=== PATIENT | male | born 1960 | race Hispanic/Latino ===

== ENCOUNTER 2023-01-31 09:45 | Day surgery (SDC) | payer OTHER ==
[2023-01-31 10:22] LABS: Potassium 4.7 mEq/L (3.5-5.1)
[2023-01-31] MEDS ORDERED: NA CHLORIDE 0.9% 1,000 ML ONE (10:35)
[2023-01-31] MEDS ORDERED: LIDOCAINE 1% MPF 5 ML VIAL ONE (12:55)
[2023-01-31] MEDS ORDERED: propofoL 200 MG/20 ML VIAL IV ONE (12:55)
[2023-01-31 13:37] VITALS: TEMP 97.8
[2023-01-31 13:52] VITALS: BP 116/67; O2SAT 100
--- NOTE | 2023-01-31 19:29 | EKG ---
Test Date: 2023-01-31 Test Time: 09:36:25 Lead Web Developer: SILVERIO MEASUREMENT RESULTS: Intervals: Rate: 58 RI: 160 QRSD: 90 QT: 408 QTc: 400 Saunemin: P: 71 RI: 160 QRS: 37 T: 71 INTERPRETIVE STATEMENTS: Sinus bradycardia Otherwise normal ECG No previous ECG available for comparison Electronically Signed On 01-31-23 19:28:20 CDT by Jerson Wolf
== END 2023-01-31 13:54 | disposition home or self-care (01) ==
LOC: OR 09:45
PROVIDERS: ATTEND Surgery
PROC: 0DBP8ZX Excision of Rectum, Via Natural or Artificial Opening Endoscopic, Diagnostic (ICD-10-PCS; principal; 2023-01-31 12:45)
DX: Z12.11 Encounter for screening for malignant neoplasm of colon (principal); K63.5 Polyp of colon
CPT/HCPCS: 93005; 80048; 36415; 88305; 45380; J2704; J2001; J7030